=== PATIENT | female | born 1940 | race Two or more races ===

== ENCOUNTER → 2021-10-18 | Emergency (ER) | payer OTHER ==
[~2021-10-18] VITALS: Ht 165.1 cm; Wt 65.8 kg
[~2021-10-18] MED LIST: ADULT LOW DOSE81 M1; AZOR 10-40 MG1 EACH; CRESTOR20 MG PO; LOSARTAN POTAS100 MG PO; SYNTHROID150 MCG; VITAMIN D31 ML PO
== END | disposition left against medical advice (07) ==
LOC: ER 11:19
DX: Z53.21 Procedure and treatment not carried out due to patient leaving prior to being seen by health care provider (principal)